=== PATIENT | female | born 1960 | race Caucasian/White ===

== ENCOUNTER 2018-03-13 09:25 | Emergency (ER) | payer BC ==
[~2018-03-13] VITALS: Ht 177.8 cm; Wt 88.5 kg
[~2018-03-13 09:25] MED LIST: ALPRAZOLAM ER1 MG PO; CLONAZEPAM 1 MG1 M1 PO; FAMOTIDINE PO; HYDROCODON-ACE1 EAC4 PO; MOBIC15 MG PO; NEURONTIN 300300 M1 PO; NEURONTIN600 MG PO; PEPCID AC20 M1 PO; ROBAXIN 750 MG750 M1 PO
[2018-03-13 09:26] VITALS: BP 131/67
[2018-03-13] MEDS ORDERED: ZOLOFT50 MG PO (09:55)
[2018-03-13] MEDS ORDERED: LIPITOR10 MG PO (09:56)
[2018-03-13] MEDS ORDERED: ZANAFLEX4 MG PO (09:57)
[2018-03-13] MEDS ORDERED: NORCO 10-325 T1 EACH PO (09:57)
[2018-03-13] MEDS ORDERED: MS CONTIN 30 MG30 MG PO (09:57)
== END 2018-03-13 10:15 | disposition home or self-care (01) ==
LOC: ER 09:25
DX: M54.31 Sciatica, right side (principal); F17.210 Nicotine dependence, cigarettes, uncomplicated; Z88.6 Allergy status to analgesic agent

== ENCOUNTER 2021-08-08 04:56 | Emergency (ER) | payer BC ==
[~2021-08-08] VITALS: Ht 177.8 cm; Wt 95.3 kg
[~2021-08-08 04:56] MED LIST changes: +LIPITOR10 MG PO; +MS CONTIN 30 MG30 MG PO; +NORCO 10-325 T1 EACH PO; +ZANAFLEX4 MG PO; +ZOLOFT50 MG PO
[2021-08-08 05:59] LABS: MAGNESIUM 1.3 mg/dL (1.8-2.4)
[2021-08-08 06:00] LABS: CALCIUM 9.1 mg/dL (8.5-10.1); CREATININE 0.7 mg/dL (0.6-1.0)
[2021-08-08 06:14] LABS: ALBUMIN 3.9 g/dL (3.4-5.0); TOTAL BILIRUBIN 0.8 mg/dL (0.2-1.0); TOTAL PROTEIN 8.4 g/dL (6.4-8.2)
[2021-08-08 06:37] LABS: ABSOLUTE NEUTROPHILS 2.3 thou/uL (1.4-8.2); BASOPHILS 1.3 % (0.0-2.0); EOSINOPHILS 0.3 % (0.0-3.0); HEMATOCRIT 42.7 % (37.0-47.0); HEMOGLOBIN 14.1 gm/dL (12.0-15.0); LYMPHOCYTES 23.7 % (24.0-44.0); MCH 30.5 pg (26.0-34.0); MCHC 32.9 g/dL (28.0-37.0); MCV 92.7 fL (80.0-100.0); PLATELET COUNT 141 thou/uL (150-400); POLYS 63.7 % (36.0-66.0); RBC 4.61 mil/uL (4.20-5.00); RDW 13.8 % (10.5-14.5); WBC 3.7 thou/uL (4.0-11.0)
[2021-08-08] MEDS ORDERED: ONDANSETRON HCL4 M2 PO (06:46)
[2021-08-08 08:51] VITALS: BP 175/97
--- NOTE | 2021-08-09 07:38 | EKG ---
[place] [address] [address] [facility] [place] [address] ELECTROCARDIOGRAM REPORT Name: SRIRAM LOUIS Room #: [facility] [place]#: [id number] Admission: 08/08/21 Attend Phys: Discharge: 08/08/21 Date of : 58 Report #: [id number] [facility] ED Test Date: 2021-08-08 Test Time: 05:28:49 Pat Name: SRIRAM LOUIS Department: Room: Gender: F Search Marketing Specialist: monie : 1960 Requested By: Tobin Colby Order Number: [id number] MD: Samir Bradley Measurements Intervals [place] Rate: 64 P: 27 SD: 173 QRS: 45 QRSD: 93 T: 47 QT: 436 QTc: 450 Interpretive Statements Sinus rhythm Probable left ventricular hypertrophy Compared to ECG 08/26/2011 23:37:06 Fusion complex(es) no longer present Ventricular premature complex(es) no longer present Electronically Signed On 08-09-2021 7:38:33 CLIPPER OPERATOR by Samir Bradley [email or web address] <ELECTRONICALLY SIGNED> By: Samir Bradley MD, [facility] 08/09/21 0738 0528 7 Samir Bradley MD, FACC /EPI
== END 2021-08-08 08:51 | disposition home or self-care (01) ==
LOC: ER 04:56
PROVIDERS: Emergency Medicine
DX: U07.1 COVID-19 (principal); J18.9 Pneumonia, unspecified organism; R11.2 Nausea with vomiting, unspecified; F17.210 Nicotine dependence, cigarettes, uncomplicated; Z79.899 Other long term (current) drug therapy; Z88.5 Allergy status to narcotic agent